=== PATIENT | female | born 1950 | race Hispanic/Latino ===

== ENCOUNTER 2016-06-13 01:21 | Emergency (ER) | payer MEDICARE ==
[2016-06-13] MEDS ORDERED: NACL 0.9% 1000 ML 1,000 ML ONE (02:24)
[2016-06-13 02:25] LABS: Basophils % (Auto) 0.5 % (0.0-1.8); Hematocrit 38.7 % (30.3-42.9); Hemoglobin 12.9 gm/dl (10.1-14.3); Mean Corpuscular HGB Conc 33 % (30-34); Mean Corpuscular Hemoglobin 29 pg (28-32); Mean Corpuscular Volume 87 fl (79-97); Platelet Count 134 K/mm3 (140-440); Red Blood Count 4.47 M/mm3 (3.65-5.03); Red Cell Distribution Width 14.9 % (13.2-15.2)
[2016-06-13] MEDS ORDERED: NACL 0.9% 1000 ML 1,000 ML IV ONE ×2 (02:34→03:39)
[2016-06-13 03:14] LABS: Anion Gap 23 mmol/L; BUN/Creatinine Ratio 31.66; Blood Urea Nitrogen 19 mg/dL (7-17); Calcium 9.7 mg/dL (8.4-10.2); Carbon Dioxide 22 mmol/L (22-30); Chloride 96.6 mmol/L (98-107); Glucose 439 mg/dL (65-100); Sodium 138 mmol/L (137-145)
[2016-06-13] MEDS ORDERED: ZOFRAN IV ONE (03:15)
--- NOTE | 2016-06-13 03:15 | Emergency Department Report ---
ED General Adult HPI - General Chief complaint: Nausea/Vomiting/Diarrhea Stated complaint: NAUSEA Time Seen by Provider: 06/13/16 03:00 Source: patient, EMS Mode of arrival: Stretcher Limitations: No Limitations - History of Present Illness Initial comments: This is a pleasant 65-year-old female with a history of insulin-dependent diabetes. 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 She did have viral gastroenteritis possibly one week ago. She indicates that this caused her sugars to become somewhat erratic. She indicates her sugars have been in the 400 range over the past week. She's been intolerant to by mouth intake since the last 36 hours. She is feeling somewhat dehydrated and weak. She is having some abdominal pains associated with this as well. She denies any further diarrhea. She would like to go home today if possible. She denies fever. She states she has been compliant on her medication as well as her a diabetic diet. Severity scale (0 -10): 0 Improves with: none Worsens with: eating - Related Data Home Medications Medication Instructions Recorded Confirmed Last Taken Diazepam 5 mg PO BID 02/13/16 06/13/16 Unknown Metoclopramide [Reglan TAB] 10 mg PO BID 02/13/16 06/13/16 Unknown Pantoprazole [Protonix TAB] 40 mg PO QDAY 02/13/16 06/13/16 Unknown Promethazine [Phenergan TAB] 25 mg PO Q6HR PRN 02/13/16 06/13/16 Unknown Topiramate [Topamax] 100 mg PO DAILY 02/13/16 06/13/16 Unknown Tramadol HCl [traMADol ER 100 MG] 50 mg PO BID 02/13/16 06/13/16 Unknown buPROPion [Wellbutrin] 150 mg PO BID 02/13/16 06/13/16 Unknown oxyCODONE [Roxicodone TAB] 5 mg PO BID 02/13/16 06/13/16 Unknown Insulin Aspart Prot/Aspart(Nf) 0 units SQ BID 06/13/16 06/13/16 Unknown [Novolog Mix 70/30] Insulin Glargine [Lantus] 14 unit SUB-Q QHS 06/13/16 06/13/16 Unknown Previous Rx's Medication Instructions Recorded Last Taken Type Gabapentin [Neurontin] 100 mg PO Q8HR #90 capsule 02/15/16 Unknown Rx Allergies Allergy/AdvReac Type Severity Reaction Status Date / Time codeine AdvReac Itching Verified 06/13/16 01:33 pentazocine lactate AdvReac Itching Verified 06/13/16 01:33 [From [facility]] ED Review of Systems ROS: Stated complaint: NAUSEA Other details as noted in HPI Comment: All other systems reviewed and negative Constitutional: weakness. denies: chills, fever Eyes: denies: eye pain, eye discharge, vision change ENT: denies: ear pain, throat pain Respiratory: denies: cough, shortness of breath, wheezing Cardiovascular: denies: chest pain, palpitations Endocrine: no symptoms reported Gastrointestinal: abdominal pain, nausea, vomiting. denies: diarrhea Genitourinary: denies: urgency, dysuria, discharge Musculoskeletal: denies: back pain, joint swelling, arthralgia Skin: denies: rash, lesions Neurological: numbness, other (neuropathy pains). denies: headache, weakness, paresthesias Psychiatric: denies: anxiety, depression Hematological/Lymphatic: denies: easy bleeding, easy bruising ED Past Medical Hx - Past Medical History Previous Medical History?: Yes Hx Congestive Heart Failure: Yes (Maybe) Hx Diabetes: Yes Hx GERD: Yes Additional medical history: Chronic back pain, gastroparesis - Surgical History Past Surgical History?: Yes Additional Surgical History: Tubal ligation - Social History Smoking Status: Current Every Day Smoker Substance Use Type: Alcohol - Medications Home Medications: Home Medications Medication Instructions Recorded Confirmed Last Taken Type Diazepam 5 mg PO BID 02/13/16 06/13/16 Unknown History Metoclopramide [Reglan TAB] 10 mg PO BID 02/13/16 06/13/16 Unknown History Pantoprazole [Protonix TAB] 40 mg PO QDAY 02/13/16 06/13/16 Unknown History Promethazine [Phenergan TAB] 25 mg PO Q6HR PRN 02/13/16 06/13/16 Unknown History Topiramate [Topamax] 100 mg PO DAILY 02/13/16 06/13/16 Unknown History Tramadol HCl [traMADol ER 100 MG] 50 mg PO BID 02/13/16 06/13/16 Unknown History buPROPion [Wellbutrin] 150 mg PO BID 02/13/16 06/13/16 Unknown History oxyCODONE [Roxicodone TAB] 5 mg PO BID 02/13/16 06/13/16 Unknown History Gabapentin [Neurontin] 100 mg PO Q8HR #90 capsule 02/15/16 06/13/16 Unknown Rx Insulin Aspart Prot/Aspart(Nf) 0 units SQ BID 06/13/16 06/13/16 Unknown History [Novolog Mix 70/30] Insulin Glargine [Lantus] 14 unit SUB-Q QHS 06/13/16 06/13/16 Unknown History ED Physical Exam - General Limitations: No Limitations General appearance: alert, in distress (mild) - Head Head exam: Present: atraumatic, normocephalic - Eye Eye exam: Present: normal appearance, EOMI. Absent: scleral icterus - ENT ENT exam: Present: normal exam, normal orophraynx, mucous membranes dry - Neck Neck exam: Present: normal inspection, full ROM. Absent: meningismus, lymphadenopathy - Respiratory Respiratory exam: Present: normal lung sounds bilaterally. Absent: respiratory distress, wheezes, rales - Cardiovascular Cardiovascular Exam: Present: regular rate, normal rhythm. Absent: systolic murmur, diastolic murmur, rubs, gallop - GI/Abdominal GI/Abdominal exam: Present: soft, normal bowel sounds. Absent: tenderness, guarding - Extremities Exam Extremities exam: Present: normal inspection. Absent: tenderness, pedal edema, calf tenderness - Back Exam Back exam: Present: normal inspection. Absent: tenderness, CVA tenderness (R), CVA tenderness (L) - Neurological Exam Neurological exam: Present: alert, oriented X3 - Psychiatric Psychiatric exam: Present: normal affect, normal mood, other (somewhat labile and tearful at times.) - Skin Skin exam: Present: warm, dry, intact, normal color. Absent: rash ED Course Vital Signs 06/13/16 06/13/16 01:43 01:46 Temperature 98.1 F Pulse Rate 95 H Respiratory 20 20 Rate Blood Pressure 148/87 [Right] O2 Sat by Pulse 98 99 Oximetry - Reevaluation(s) Reevaluation #1: 06/13/16 05:29 Patient does endorse numerous emotional stressors related to several deaths in the family recently. She does have a patch that just got put down as well. She indicates again she had the physical stress or with a viral gastroenteritis a week ago as well. She is not in DKA. She is breathing at a normal rate. Her CO2 is normal. Though. She was given IV fluids as well as several rounds of insulin regular. These did gently bring down the sugar to the appropriate range. I feel that she is appropriate for home management. She has not had emesis while I have been taking care of her in the back. Her abdomen does not demonstrate any tenderness to palpation on objective. Subjectively she does describe some mild tenderness. I suspect these are her chronic pains related to her gastroparesis. I did stress the importance of keeping up with her fluids and insulin at home. Reevaluation #2: 06/13/16 06:43 Patient patient was gently hydrated here. She has received several doses of insulin regular. Her sugars are now on the appropriate level. She subjectively feels much more comfortable. She would like to eat a meal actually. I did encourage her to be very careful with her oral ingestion today. Feels that she is safe for home. She does not demonstrate any signs of DKA. Her potassium is appropriate her other labs are appropriate as well. She has family with her at home. I feel that she will do well with this. Routine instructions given. Routine precautions given. ED Medical Decision Making - Lab Data Result diagrams: 06/13/16 02:08 06/13/16 02:08 Critical care attestation.: If time is entered above; I have spent that time in minutes in the direct care of this critically ill patient, excluding procedure time. 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 Continue with her ADA diet. Follow-up with her physician. Return if any acute worsening. Referrals: PRIMARY CARE, [Primary Care Provider] - 3-5 Days Time of Disposition: 05:34
[2016-06-13 07:36] LABS: Bilirubin,Urine NEG (Negative); Blood,Urine SM (Negative); Ketones,Urine TR mg/dL (Negative); Leukocyte Esterase,Urine LG (Negative); Nitrite,Urine NEG (Negative); Urobilinogen,Urine < 2.0 mg/dL (<2.0)
[2016-06-13] MEDS ORDERED: D50W (25GM) IV ONE ×3 (08:15→09:00)
[2016-06-13 11:43] VITALS: BP 121/67
== END 2016-06-13 11:43 | disposition home or self-care (01) ==
LOC: ED 01:21
DX: E11.65 Type 2 diabetes mellitus with hyperglycemia (principal); Z79.4 Long term (current) use of insulin; K21.9 Gastro-esophageal reflux disease without esophagitis; G89.29 Other chronic pain; F17.200 Nicotine dependence, unspecified, uncomplicated; Z88.6 Allergy status to analgesic agent
CPT/HCPCS: 36415; 80048; 81001; 82962; 85025; 96361; 96372; 96374; 96375; 99284; J2405; J7030; J1815